=== PATIENT | male | born 2000 | race Caucasian/White ===

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

== ENCOUNTER → 2023-01-04 | Outpatient (CLI) | payer BC ==
--- NOTE | 2023-01-05 09:42 | XR ---
EXAMINATION TYPE: XR knee complete bilateral DATE OF EXAM: 01/04/2023 COMPARISON: NONE HISTORY: Pain TECHNIQUE: Three views are submitted. FINDINGS: Right knee: Joint spaces are preserved. Osseous structures are intact. No acute fracture seen. Left knee: Postsurgical change involving the tibia. There is evidence of previous surgery involving t he. Correlate for previous ACL surgery. IMPRESSION: 1. No acute fracture or dislocation bilaterally. 2 postsurgical change involving the left knee.
== END | disposition home or self-care (01) ==
LOC: RADXRMAIN 15:53
PROVIDERS: ATTEND Nurse Practitioner
DX: M25.562 Pain in left knee (principal); E55.9 Vitamin D deficiency, unspecified; M25.561 Pain in right knee

== ENCOUNTER → 2023-01-04 | Outpatient (CLI) | payer BC | END | disposition home or self-care (01) | LOC: LABWHC1 16:06 | PROVIDERS: ATTEND Nurse Practitioner | DX: E55.9 Vitamin D deficiency, unspecified (principal) | CPT/HCPCS: 36415; 82306 ==